=== PATIENT | female | born 1955 | race Caucasian/White ===

== ENCOUNTER → 2018-01-29 | Outpatient (CLI) | payer BC | LOC: MC.RAD 12:33 | DX: Z12.31 Encounter for screening mammogram for malignant neoplasm of breast (principal) ==

== ENCOUNTER → 2019-01-30 | Outpatient (CLI) | payer BC | LOC: MC.RAD 10:56 | DX: Z12.31 Encounter for screening mammogram for malignant neoplasm of breast (principal) ==

== ENCOUNTER → 2020-02-02 | Outpatient (CLI) | payer BC | LOC: MC.RAD 14:50 | DX: Z12.31 Encounter for screening mammogram for malignant neoplasm of breast (principal) ==

== ENCOUNTER → 2021-02-09 | Outpatient (CLI) | payer BC, OTHER ==
[~2021-02-09] MED LIST: GLUCOPHAGE XR500 M1 PO; K-TAB20; LIPITOR 10MG10 MG; LOSARTAN POTASSIUM/H; NORVASC 5MG5 MG/TAB; SYNTHROID0.125 MG/T; TOPROL XL100 MG
== END ==
LOC: MC.RAD 14:17
DX: Z12.31 Encounter for screening mammogram for malignant neoplasm of breast (principal)

== ENCOUNTER 2021-06-07 21:35 | Emergency (ER) | payer MEDICARE, OTHER ==
[2021-06-07 21:43] VITALS: TEMP 98.3
[2021-06-07] MEDS ORDERED: LIPITOR 10MG10 MG (21:55)
[2021-06-07] MEDS ORDERED: TOPROL XL100 MG (21:55)
[2021-06-07] MEDS ORDERED: GLUCOPHAGE XR500 M1 PO (21:55)
[2021-06-07] MEDS ORDERED: NORVASC 5MG5 MG/TAB (21:56)
[2021-06-07] MEDS ORDERED: K-TAB20 (21:56)
[2021-06-07] MEDS ORDERED: LOSARTAN POTASSIUM/H (21:56)
[2021-06-07] MEDS ORDERED: SYNTHROID0.125 MG/T (21:56)
[2021-06-07 22:00] LABS: BASO # 0.1 K/mm3 (0.0-0.2); BASO % 0.4 % (0.0-2.0); EOS # 0.2 K/mm3 (0.0-0.7); EOS % 1.6 % (0-4.0); GRAN # 9.9 K/mm3 (1.4-6.5); GRAN % 73.6 % (42.2-75.2); HEMOGLOBIN 13.6 g/dl (12.5-16.0); LYMPH # 2.3 K/mm3 (1.2-3.4); MEAN CELL VOLUME 87 fl (80.0-100.0); MEAN CORPUSCULAR HEMOGLOBIN 28 pg (27.0-31.0); MEAN CORPUSCULAR HGB CONC 32 g/dl (33.0-37.0); MEAN PLATELET VOLUME 8.9 fl (7.4-10.4); MONO # 0.9 K/mm3 (0.1-0.6); PLATELET COUNT 280 K/mm3 (130-400); RED BLOOD COUNT 4.83 M/mm3 (4.10-5.30); REDCELL DISTRIBUTION WIDTH-CV 14.4 % (11.5-14.5)
[2021-06-07 22:13] LABS: ALBUMIN 4.2 gm/dL (3.4-4.8); C-REACTIVE PROTEIN 1.66 mg/dL (0.00-0.50); CALCIUM 10.2 mg/dL (8.4-10.2); CREATININE, serum 0.85 mg/dL (0.57-1.11); POTASSIUM 3.2 mmol/L (3.5-4.5); TOTAL PROTEIN 8.3 gm/dL (6.2-8.1)
[2021-06-07 22:35] LABS: BILIRUBIN,TOTAL 0.4 mg/dL (0.2-1.2)
[2021-06-08 01:19] VITALS: BP 126/88; PULSE 81
== END 2021-06-08 01:19 | disposition home or self-care (01) ==
LOC: COL.ER 21:35
PROVIDERS: Emergency Medicine
DX: D25.9 Leiomyoma of uterus, unspecified (principal); I10 Essential (primary) hypertension; E78.5 Hyperlipidemia, unspecified; E11.9 Type 2 diabetes mellitus without complications; Z79.84 Long term (current) use of oral hypoglycemic drugs; Z79.890 Hormone replacement therapy; Z79.899 Other long term (current) drug therapy

== ENCOUNTER → 2024-04-11 | Outpatient (CLI) | payer MEDICARE, OTHER | LOC: MC.RAD 11:28 | DX: Z12.31 Encounter for screening mammogram for malignant neoplasm of breast (principal) ==